=== PATIENT | female | born 1950 | race Caucasian/White ===

== ENCOUNTER 2019-02-08 15:09 | Outpatient (CLI) | payer MEDICARE ==
[~2019-02-08 15:09] MED LIST: Iopamidol 370 76% 100 ML VIAL ONE
--- NOTE | 2019-02-08 15:53 | CT ---
CT abdomen and pelvis with IV and oral contrast HISTORY: Abdominal pain. Diarrhea. FINDINGS: The lung bases are clear. Gallbladder is distended at 11.5 cm and contains a small hyperden se stone. Wall is not thickened. No common duct dilatation. No pericholecystic fluid. Small amount calcification within the arterial structures. Appendix is not inflamed. Diverticula naresh e from the colon without adjacent inflammation. Bladder is unremarkable. Degenerative changes lumbar spine. IMPRESSION: Cholelithiasis. Gallbladder is distended without other signs of abnormality. No direct fi ndings of inflammation. Clinical correlation regarding other signs and symptoms of gallbladder outlet obstruction and acute c holecystitis is required. The diagnosis is not likely with the overall appearance. Radionuclide hepatobiliary scan could be used to evaluate for cystic duct patency if needed.
== END 2019-02-08 15:10 | disposition home or self-care (01) ==
LOC: BICCT 15:09
PROVIDERS: ATTEND Internal Medicine Gastroenterology
DX: R10.84 Generalized abdominal pain (principal); R19.7 Diarrhea, unspecified; R11.2 Nausea with vomiting, unspecified; K80.20 Calculus of gallbladder without cholecystitis without obstruction; K82.8 Other specified diseases of gallbladder; Z80.9 Family history of malignant neoplasm, unspecified
CPT/HCPCS: 74177; 82565

== ENCOUNTER 2024-08-24 08:55 | Outpatient (CLI) | payer MEDICARE | END 2024-08-24 08:56 | disposition home or self-care (01) | LOC: BICMAMMO 08:55 | PROVIDERS: ATTEND Family Medicine | DX: R92.8 Other abnormal and inconclusive findings on diagnostic imaging of breast (principal); R92.1 Mammographic calcification found on diagnostic imaging of breast | CPT/HCPCS: 77065; G0279 ==

== ENCOUNTER → 2024-09-02 | Day surgery (SDC) | payer MEDICARE | LOC: MAMMO 06:56 | PROVIDERS: ATTEND Family Medicine | PROC: 0HB5XZX Excision of Chest Skin, External Approach, Diagnostic (ICD-10-PCS; principal; 2024-09-02) | DX: N60.21 Fibroadenosis of right breast (principal); N60.81 Other benign mammary dysplasias of right breast; N60.11 Diffuse cystic mastopathy of right breast; R92.1 Mammographic calcification found on diagnostic imaging of breast | CPT/HCPCS: 19081; 76098; 88305 ==

== ENCOUNTER 2025-08-30 15:19 | Outpatient (CLI) | payer MEDICARE | END 2025-08-30 15:20 | disposition home or self-care (01) | LOC: BICMAMMO 15:19 | PROVIDERS: ATTEND Family Medicine | DX: Z12.31 Encounter for screening mammogram for malignant neoplasm of breast (principal); Z78.0 Asymptomatic menopausal state; Z91.89 Other specified personal risk factors, not elsewhere classified | CPT/HCPCS: 77063; 77067; 77080 ==